=== PATIENT | male | born 1950 | race Caucasian/White ===

== ENCOUNTER → 2018-03-22 | Outpatient (CLI) | payer OTHER, MEDICARE ==
[~2018-03-22] MED LIST: AMLO2.5T PO; ASPI-496 PO; LISI1TAB3 PO; LISI5TAB7 PO; METF500T5 PO
== END | disposition home or self-care (01) ==
LOC: RAD 09:25
PROVIDERS: ATTEND Nurse Practitioner Family
DX: K80.20 Calculus of gallbladder without cholecystitis without obstruction (principal); K44.9 Diaphragmatic hernia without obstruction or gangrene; I25.10 Atherosclerotic heart disease of native coronary artery without angina pectoris
CPT/HCPCS: 74150

== ENCOUNTER → 2018-05-30 | Outpatient (CLI) | payer OTHER, MEDICARE ==
[~2018-05-30] MED LIST changes: -AMLO2.5T PO; +AMLO2.5T3 PO; +METF500T17 PO; -METF500T5 PO
== END | disposition home or self-care (01) ==
LOC: CFH 08:20
PROVIDERS: ATTEND Nurse Practitioner Family
DX: K80.20 Calculus of gallbladder without cholecystitis without obstruction (principal); K44.9 Diaphragmatic hernia without obstruction or gangrene; K59.00 Constipation, unspecified
CPT/HCPCS: 74150

== ENCOUNTER → 2018-06-15 | Outpatient (CLI) | payer OTHER, MEDICARE ==
[~2018-06-15] MED LIST changes: +REGADENOSON 0.4 MG/5 ML SYRINGE ONE
== END | disposition home or self-care (01) ==
LOC: CFH 07:20
PROVIDERS: ATTEND Internal Medicine Cardiovascular Disease
DX: I21.19 ST elevation (STEMI) myocardial infarction involving other coronary artery of inferior wall (principal); R93.1 Abnormal findings on diagnostic imaging of heart and coronary circulation; Z82.49 Family history of ischemic heart disease and other diseases of the circulatory system
CPT/HCPCS: 78452; 93017; 93306; A9502; J2785

== ENCOUNTER → 2018-08-08 | Outpatient (CLI) | payer OTHER, MEDICARE ==
[~2018-08-08] MED LIST changes: -REGADENOSON 0.4 MG/5 ML SYRINGE ONE
== END | disposition home or self-care (01) ==
LOC: RAD 08:39
PROVIDERS: ATTEND Surgery
DX: K82.4 Cholesterolosis of gallbladder (principal); K44.9 Diaphragmatic hernia without obstruction or gangrene; K21.9 Gastro-esophageal reflux disease without esophagitis
CPT/HCPCS: 74220; 93975

== ENCOUNTER → 2018-09-06 | Outpatient (CLI) | payer OTHER, MEDICARE ==
[~2018-09-06] MED LIST changes: -AMLO2.5T3 PO; +AMLO2.5T5 PO; +OMNIPAQUE 350 MG/ML, 100ML BOTTLE ONE
== END | disposition home or self-care (01) ==
LOC: CFH 13:46
PROVIDERS: ATTEND Surgery
DX: K59.00 Constipation, unspecified (principal); M47.817 Spondylosis without myelopathy or radiculopathy, lumbosacral region; K44.9 Diaphragmatic hernia without obstruction or gangrene; I70.0 Atherosclerosis of aorta; K76.0 Fatty (change of) liver, not elsewhere classified; K80.20 Calculus of gallbladder without cholecystitis without obstruction; K57.30 Diverticulosis of large intestine without perforation or abscess without bleeding; I51.7 Cardiomegaly; K55.9 Vascular disorder of intestine, unspecified
CPT/HCPCS: 74174; Q9967

== ENCOUNTER 2018-09-27 05:46 | Day surgery (SDC) | payer OTHER, MEDICARE ==
[~2018-09-27] VITALS: Ht 172.7 cm; Wt 95.3 kg
[~2018-09-27 05:46] MED LIST changes: +AMLO10TA8 PO; +GABA300C10 PO; +LISI1TAB5 PO; +OMEP20TA62 PO; -OMNIPAQUE 350 MG/ML, 100ML BOTTLE ONE; +SIMV40TA3 PO
[2018-09-27 07:08] VITALS: BP 145/70
[2018-09-27] MEDS ORDERED: LACTATED RINGERS 1,000 ML IV SCH (07:18)
[2018-09-27] MEDS ORDERED: BUPIVACAINE/PF-EPI 0.5% 1:200K ONE (07:39)
[2018-09-27] MEDS ORDERED: MIDAZOLAM 1 MG/ML, 2ML ONE (08:23)
[2018-09-27] MEDS ORDERED: FENTANYL PF 250 MCG/5ML ONE (08:23)
[2018-09-27] MEDS ORDERED: DEXAMETHASONE 4 MG/ML, 5ML ONE (08:49)
[2018-09-27] MEDS ORDERED: CEFAZOLIN 1,000 MG ONE ×3 (08:51→12:05)
[2018-09-27] MEDS ORDERED: HYDROmorphone 2 MG/ML, 1ML IVPush PRN (09:30)
[2018-09-27] MEDS ORDERED: LABETALOL 5MG/ML, 20ML IV PRN (09:30)
[2018-09-27] MEDS ORDERED: ONDANSETRON 2MG/ML, 2ML IV PRN (09:30)
[2018-09-27] MEDS ORDERED: hydrALAzine 20 MG/ML, 1ML IV PRN (09:30)
[2018-09-27] MEDS ORDERED: PROMETHAZINE 25 MG/ML, 1ML IV PRN (09:30)
[2018-09-27] MEDS ORDERED: OXYcodone 5 MG/5 ML ORAL.SOL UDC PO PRN (09:30)
[2018-09-27] MEDS ORDERED: ACETAMINOPHEN 325 MG TABLET PO PRN (09:30)
[2018-09-27] MEDS ORDERED: MEPERIDINE/PF 25MG/0.5ML IVPush PRN (09:30)
[2018-09-27] MEDS ORDERED: PROPOFOL 10 MG/ML, 20ML ONE (09:54)
[2018-09-27] MEDS ORDERED: ROCURONIUM 10MG/ML,5ML ONE ×2 (09:54)
[2018-09-27] MEDS ORDERED: ONDANSETRON 2MG/ML, 2ML ONE (10:52)
[2018-09-27] MEDS ORDERED: NEOSTIGMINE 1 MG/ML, 10ML ONE (10:55)
[2018-09-27] MEDS ORDERED: GLYCOPYRROLATE 0.4 MG/2 ML, 2ML ONE (10:55)
[2018-09-27] MEDS ORDERED: OXYcodone 5 MG/5 ML ORAL.SOL UDC ONE (11:35)
[2018-09-27] MEDS ORDERED: FENTANYL PF 100 MCG/2ML ONE (11:35)
[2018-09-27] MEDS: FENTANYL PF 100 MCG/2ML IV PRN ×2 (11:37→11:45)
[2018-09-27] MEDS ORDERED: IBUPROFEN 600 MG TABLET ONE (16:16)
[2018-09-27] MEDS ORDERED: IBUPROFEN 800 MG TABLET PO SCH (16:30)
[2018-09-27] MEDS ORDERED: IBUPROFEN 200 MG TABLET PO SCH (21:00)
== END 2018-09-27 16:40 | disposition home or self-care (01) ==
LOC: OUT 05:46
PROVIDERS: ATTEND Surgery
DX: K80.10 Calculus of gallbladder with chronic cholecystitis without obstruction (principal); K44.9 Diaphragmatic hernia without obstruction or gangrene; K21.9 Gastro-esophageal reflux disease without esophagitis; I25.10 Atherosclerotic heart disease of native coronary artery without angina pectoris; E11.9 Type 2 diabetes mellitus without complications; E78.5 Hyperlipidemia, unspecified; G47.33 Obstructive sleep apnea (adult) (pediatric); I10 Essential (primary) hypertension; Z98.52 Vasectomy status; Z98.890 Other specified postprocedural states; Z79.82 Long term (current) use of aspirin; Z79.899 Other long term (current) drug therapy; Z72.89 Other problems related to lifestyle; Z87.891 Personal history of nicotine dependence; Z79.84 Long term (current) use of oral hypoglycemic drugs
CPT/HCPCS: 43280; 47562; 82962; 88304; J0690; J1100; J2250; J2405; J2704; J2710; J3010; J7120

== ENCOUNTER → 2019-09-12 | Outpatient (CLI) | payer OTHER, MEDICARE ==
[~2019-09-12] MED LIST changes: +LISI1TAB19 PO; +LISI1TAB23 PO; -LISI1TAB3 PO; -LISI1TAB5 PO; +ROSU20TA2 PO
[2019-09-12 11:51] LABS: ALANINE AMINOTRANSFERASE 19 U/L (12-78); ALBUMIN 3.8 g/dL (3.4-5.0); ANION GAP 8 mmol/L (5-15); CALCIUM 9.2 mg/dL (8.5-10.1); CHLORIDE 107 mmol/L (98-107)
[2019-09-12 11:53] LABS: ALKALINE PHOSPHATASE 67 U/L (45-117); BILIRUBIN,TOTAL 0.4 mg/dL (0.2-1.0); CREATININE 0.92 mg/dL (0.7-1.3); TOTAL PROTEIN 7.5 g/dL (6.4-8.2)
[2019-09-12 11:56] LABS: INTERNATIONAL NORMALIZED RATIO 0.93 (0.93-1.1); PROTHROMBIN TIME 9.9 Seconds (9.6-11.5)
[2019-09-12 12:11] LABS: BASOPHILS # (AUTO) 0.05 x10^3/uL (0-0.1); BASOPHILS % (AUTO) 1 % (0-1); EOSINOPHILS # (AUTO) 0.72 x10^3/uL (0-0.4); EOSINOPHILS % (AUTO) 8 % (1-7); LYMPHOCYTES # (AUTO) 2.23 x10^3/uL (1-3.4); LYMPHOCYTES % (AUTO) 23 % (22-44); MD NO; MEAN CORPUSCULAR VOLUME 88.1 fL (81-97); MEAN PLATELET VOLUME 8.7 fL (7.4-10.4); MONOCYTES # (AUTO) 0.69 x10^3/uL (0.2-0.8); MONOCYTES % (AUTO) 7 % (2-9); NEUTROPHILS # (AUTO) 5.96 x10^3/uL (1.8-6.8); NEUTROPHILS % (AUTO) 62 % (42-75); PLATELET COUNT 283 x10^3/uL (130-400); RED CELL DISTRIBUTION WIDTH 14.4 % (9.4-14.8)
== END | disposition home or self-care (01) ==
LOC: STAR 10:13
PROVIDERS: ATTEND Orthopaedic Surgery
DX: Z01.818 Encounter for other preprocedural examination (principal); T84.84XA Pain due to internal orthopedic prosthetic devices, implants and grafts, initial encounter; Y83.8 Other surgical procedures as the cause of abnormal reaction of the patient, or of later complication, without mention of misadventure at the time of the procedure; Y92.89 Other specified places as the place of occurrence of the external cause; Z96.651 Presence of right artificial knee joint
CPT/HCPCS: 36415; 80053; 83036; 85025; 85610; 85730; 87081; 87147; 93005

== ENCOUNTER 2019-09-18 08:18 | Inpatient (IN) | payer OTHER, MEDICARE ==
[~2019-09-18] VITALS: Ht 172.7 cm; Wt 86.7 kg
[~2019-09-18 08:18] MED LIST changes: +KETOROLAC 60 MG/2 ML ONE; +ROPIvacaine/PF 0.5%, 20 ML ONE; +ROPIvacaine/PF 0.5%, 30 ML ONE; +SIMV40TA20 PO; -SIMV40TA3 PO; +TRANEXAMIC ACID 100 MG/ML, 10ML ONE; +VANCOMYCIN 1,000 MG ONE
[2019-09-18] MEDS ORDERED: LACTATED RINGERS 1,000 ML IV SCH (09:12)
[2019-09-18] MEDS ORDERED: GABAPENTIN 300 MG CAPSULE PO ONE (09:30)
[2019-09-18] MEDS ORDERED: VANCOMYCIN PER PHARMACY MC ONE (09:30)
[2019-09-18] MEDS ORDERED: ACETAMINOPHEN 500 MG TABLET PO ONE (09:30)
[2019-09-18] MEDS ORDERED: ONDANSETRON 2MG/ML, 2ML IV PRN ×2 (10:00→10:30)
[2019-09-18] MEDS ORDERED: DIPHENHYDRAMINE 25 MG CAPSULE PO PRN (10:00)
[2019-09-18] MEDS ORDERED: PHARMACOKINETIC CONSULTATION MC ONE (10:00)
[2019-09-18] MEDS ORDERED: SCOPOLAMINE PATCH, 1.5MG PATCH.TD72 TD ONE (10:00)
[2019-09-18] MEDS ORDERED: HYDROmorphone 1 MG/ML, 1ML INJ IV PRN (10:00)
[2019-09-18] MEDS ORDERED: ONDANSETRON 4 MG TABLET PO PRN (10:00)
[2019-09-18] MEDS ORDERED: OXYcodone IR 5MG TABLET PO PRN (10:00)
[2019-09-18] MEDS ORDERED: ZOLPIDEM 5MG TABLET PO PRN (10:00)
[2019-09-18] MEDS ORDERED: MAGNESIUM HYDROXIDE 8%, 30ML UDC PO PRN (10:00)
[2019-09-18] MEDS ORDERED: HYDROcodone/APAP 5/325 TABLET PO PRN (10:00)
[2019-09-18] MEDS ORDERED: VANCOMYCIN 1,700 MG in SODIUM CHLORIDE 0.9% 250 ML IV ONE (10:00)
[2019-09-18] MEDS ORDERED: SENNA/DOCUSATE TABLET PO PRN (10:00)
[2019-09-18] MEDS ORDERED: BISACODYL 10 MG SUPP PR PRN (10:00)
[2019-09-18] MEDS ORDERED: PROPOFOL 10 MG/ML, 20ML ONE (10:16)
[2019-09-18] MEDS ORDERED: NEOSTIGMINE 1 MG/ML, 10ML ONE (10:16)
[2019-09-18] MEDS ORDERED: CEFAZOLIN 1,000 MG ONE (10:16)
[2019-09-18] MEDS ORDERED: PHENYLEPHRINE 10 MG/ML ONE (10:16)
[2019-09-18] MEDS ORDERED: GLYCOPYRROLATE 0.2MG/1ML, 5ML ONE (10:16)
[2019-09-18] MEDS ORDERED: ROCURONIUM 10 MG/ML,10ML ONE (10:16)
[2019-09-18] MEDS ORDERED: MEPERIDINE/PF 25MG/ML,1ML IVPush PRN (10:30)
[2019-09-18] MEDS ORDERED: LABETALOL 5MG/ML, 20ML IV PRN (10:30)
[2019-09-18] MEDS ORDERED: MORPHINE SULFATE 4 MG/ML, 1ML IVPush PRN (10:30)
[2019-09-18] MEDS ORDERED: OXYcodone 5 MG/5 ML ORAL.SOL UDC PO PRN (10:30)
[2019-09-18] MEDS ORDERED: HYDROmorphone 1 MG/ML, 1ML INJ IVPush PRN (10:30)
[2019-09-18] MEDS ORDERED: hydrALAzine 20 MG/ML, 1ML IV PRN (10:30)
[2019-09-18] MEDS ORDERED: FENTANYL PF 100 MCG/2ML IV PRN (10:30)
[2019-09-18] MEDS: INSULIN LISPRO 100 UNITS/ML, PEN SQ-INSULIN SCH ×3 (11:00→21:00)
[2019-09-18] MEDS ORDERED: ONDANSETRON 2MG/ML, 2ML ONE (12:46)
[2019-09-18 13:35] VITALS: BP 90/48
[2019-09-18] MEDS: NS + 20MEQ KCL 1,000 ML IV SCH (14:59)
[2019-09-18] MEDS: GABAPENTIN 300 MG CAPSULE PO SCH ×2 (16:27→20:45)
[2019-09-18] MEDS ORDERED: ASPIRIN 81 MG TABLET EC PO SCH (18:00)
[2019-09-18] MEDS: CEFAZOLIN PMX 2GM/50ML 50 ML IVPB SCH (18:30)
[2019-09-18 19:55] VITALS: BP 90/49
[2019-09-18] MEDS: DOCUSATE 100 MG CAPSULE PO SCH (20:45)
[2019-09-18] MEDS: metFORMIN 500 MG TABLET PO SCH (20:45)
[2019-09-18] MEDS ORDERED: ATORVASTATIN 80 MG TABLET PO SCH (21:00)
[2019-09-18 23:39] VITALS: BP 100/59
[2019-09-19] MEDS: ACETAMINOPHEN 650 MG/20.3 ML UDC PO PRN ×2 (00:28→07:05)
[2019-09-19] MEDS: NS + 20MEQ KCL 1,000 ML IV SCH (01:30)
[2019-09-19] MEDS: CEFAZOLIN PMX 2GM/50ML 50 ML IVPB SCH (01:30)
[2019-09-19 03:55] VITALS: BP 104/50
[2019-09-19] MEDS ORDERED: DEXAMETHASONE 4 MG/ML, 1ML IVPush SCH (06:00)
[2019-09-19] MEDS ORDERED: RIVAROXABAN 10 MG TABLET PO SCH (06:00)
[2019-09-19] MEDS: INSULIN LISPRO 100 UNITS/ML, PEN SQ-INSULIN SCH ×2 (07:00→11:11)
[2019-09-19 07:47] VITALS: BP 123/68
[2019-09-19] MEDS: metFORMIN 500 MG TABLET PO SCH (08:34)
[2019-09-19] MEDS: DOCUSATE 100 MG CAPSULE PO SCH (08:34)
[2019-09-19] MEDS: GABAPENTIN 300 MG CAPSULE PO SCH (08:34)
[2019-09-19] MEDS ORDERED: OXYC5CAP2 PO (08:35)
[2019-09-19] MEDS ORDERED: RIVA10TA2 PO (08:36)
[2019-09-19] MEDS ORDERED: TRAM50TA2 PO (08:36)
[2019-09-19] MEDS ORDERED: MELO7.5T31 PO (08:37)
[2019-09-19] MEDS ORDERED: LISINOPRIL 20 MG TABLET PO SCH (09:00)
[2019-09-19] MEDS ORDERED: AMLODIPINE 10 MG TAB PO SCH (09:00)
[2019-09-19] MEDS ORDERED: HYDROCHLOROTHIAZIDE 12.5 MG CAPSULE PO SCH (09:00)
[2019-09-19 10:32] VITALS: BP 138/59
== END 2019-09-19 11:34 | disposition home or self-care (01) | DRG 468 ==
LOC: ORIP 08:18 → 4NE 13:27 → DCLOUNGE 09-19 11:24
PROVIDERS: ADMIT Orthopaedic Surgery; ATTEND Orthopaedic Surgery
PROC: 0SWT0JZ Revision of Synthetic Substitute in Right Knee Joint, Femoral Surface, Open Approach (ICD-10-PCS; principal; 2019-09-18 10:30)
DX: T84.84XA Pain due to internal orthopedic prosthetic devices, implants and grafts, initial encounter (principal); Y83.8 Other surgical procedures as the cause of abnormal reaction of the patient, or of later complication, without mention of misadventure at the time of the procedure; Z96.651 Presence of right artificial knee joint; E11.9 Type 2 diabetes mellitus without complications; I25.10 Atherosclerotic heart disease of native coronary artery without angina pectoris; I10 Essential (primary) hypertension; Y92.89 Other specified places as the place of occurrence of the external cause; Z82.49 Family history of ischemic heart disease and other diseases of the circulatory system; Z87.891 Personal history of nicotine dependence; I25.2 Old myocardial infarction
CPT/HCPCS: 36415; 82962; 85014; 85018; 86850; 86900; C1713; G0378; J0690; J1100; J1885; J2405; J2704; J2710; J2795; J3010; J3370; J3480; C1776; J2370; J7050; J7120

== ENCOUNTER 2019-09-22 08:43 | Emergency (ER) | payer OTHER, MEDICARE ==
[~2019-09-22] VITALS: Ht 172.7 cm; Wt 86.1 kg
[~2019-09-22 08:43] MED LIST changes: -KETOROLAC 60 MG/2 ML ONE; +MELO7.5T31 PO; +OXYC5CAP2 PO; +RIVA10TA2 PO; -ROPIvacaine/PF 0.5%, 20 ML ONE; -ROPIvacaine/PF 0.5%, 30 ML ONE; +TRAM50TA2 PO; -TRANEXAMIC ACID 100 MG/ML, 10ML ONE; -VANCOMYCIN 1,000 MG ONE
--- NOTE | 2019-09-22 09:16 | NUR ---
PT PRESENTS TO ED WITH C/O CONSTIPATION, LBM 6 DAYS AGO. PT NOTES HE HAD RIGHT KNEE REVISION 09/18/19 AND WAS GIVEN OXYCODONE FOR PAIN WHICH CAUSED CONSTIPATION. PT STATES HE HAS TAKEN LAXATIVES AT HOME WITH NO SUCCESS. ABDOMEN IS SOFT, BOWEL SOUNDS NOTED. NO TENDERNESS ON EXAM. PT HAS WOUND VAC IN PLACE TO RIGHT KNEE, DRESSING CDI, WOUND VAC ATTACHED AND FUNCTIONAL. NO ERYTHEMA, NO S/SX INFECTION TO SURGICAL SITE. PT A&O, RESPS EVEN AND UNLABORED. BP AND SPO2 MONITORS IN PLACE. CALL LIGHT IN REACH. AWAITING MD AND ORDERS.
--- NOTE | 2019-09-22 09:23 | NUR ---
DORITA PEACE AT BEDSIDE.
--- NOTE | 2019-09-22 09:28 | NUR ---
pt to xray
[2019-09-22] MEDS ORDERED: SODIUM CHLORIDE 0.9% 1,000ML IVBOLUS ONE (09:30)
[2019-09-22] MEDS ORDERED: SODIUM CHLORIDE FLUSH 10ML SYR IVF ONE (09:30)
[2019-09-22 10:08] LABS: ALBUMIN 3.2 g/dL (3.4-5.0); ANION GAP 9 mmol/L (5-15); CALCIUM 9.3 mg/dL (8.5-10.1); CHLORIDE 102 mmol/L (98-107)
[2019-09-22 10:11] LABS: ALANINE AMINOTRANSFERASE 16 U/L (12-78); ALKALINE PHOSPHATASE 67 U/L (45-117); BILIRUBIN,TOTAL 0.8 mg/dL (0.2-1.0); CREATININE 1.03 mg/dL (0.7-1.3); TOTAL PROTEIN 7.5 g/dL (6.4-8.2)
[2019-09-22 10:15] LABS: BASOPHILS # (AUTO) 0.06 x10^3/uL (0-0.1); BASOPHILS % (AUTO) 1 % (0-1); EOSINOPHILS # (AUTO) 0.15 x10^3/uL (0-0.4); EOSINOPHILS % (AUTO) 1 % (1-7); LYMPHOCYTES # (AUTO) 1.24 x10^3/uL (1-3.4); LYMPHOCYTES % (AUTO) 12 % (22-44); MD NO; MEAN CORPUSCULAR HEMOGLOBIN 29.2 pg (27.5-34.5); MEAN CORPUSCULAR HGB CONC 32.9 g/dL (33.2-36.2); MEAN CORPUSCULAR VOLUME 88.8 fL (81-97); MEAN PLATELET VOLUME 7.9 fL (7.4-10.4); MONOCYTES # (AUTO) 0.69 x10^3/uL (0.2-0.8); MONOCYTES % (AUTO) 7 % (2-9); NEUTROPHILS # (AUTO) 8.54 x10^3/uL (1.8-6.8); NEUTROPHILS % (AUTO) 80 % (42-75); PLATELET COUNT 272 x10^3/uL (130-400); RED BLOOD COUNT 4.02 x10^6/uL (4.38-5.82); RED CELL DISTRIBUTION WIDTH 14.1 % (9.4-14.8)
--- NOTE | 2019-09-22 11:21 | NUR ---
PT RESTING ON [place]ISETTE, A&O, RESPS EVEN AND UNLABORED. PT TO RECEIVE MEDS, REPORT GIVEN TO BREAK STEVE MORELAND.
[2019-09-22] MEDS ORDERED: DIAZEPAM 5 MG TABLET PO ONE (11:30)
[2019-09-22] MEDS ORDERED: METHYLNALTREXONE 12 MG/0.6 ML SYR SQ ONE ×2 (11:30→11:32)
[2019-09-22] MEDS ORDERED: DIAZEPAM 5 MG TABLET ONE (11:32)
--- NOTE | 2019-09-22 11:38 | NUR ---
task rn: pt medicated for pain and constipation per oct. will continue to monitor
--- NOTE | 2019-09-22 12:20 | NUR ---
PT INFORMED OF POC, PT REFUSES ENEMA AT THIS TIME, WISHING TO ATTEMPT TO HAVE A BM WITHOUT ENEMA ADMIN. PT UP TO BSC COMMODE WITH RN ASSIST. CALL LIGHT IN REACH.
--- NOTE | 2019-09-22 13:20 | NUR ---
pt unsuccessful in having a BM without enema, pt req [facility] enema. enema admin, pt tolerated well. pt up to commode at this time, awaiting enema effect.
--- NOTE | 2019-09-22 13:59 | NUR ---
pt had a large BM after enema. pt notes complete relief of pain and abd pressure. pt assisted back to bed, awaiting dc orders.
[2019-09-22 14:20] VITALS: BP 103/66
--- NOTE | 2019-09-22 14:20 | NUR ---
late entry d/t patient care: pt given dc instructions. pt a&o, resps even and unlabored, ambulatory to dc with steady gait, using own walker. pt reports he is feeling much better after enema. pt instructed not to drive d/t valium given. is to drive pt home. nadn at ut.
== END 2019-09-22 14:21 | disposition home or self-care (01) ==
LOC: ED 10:04
DX: K59.00 Constipation, unspecified (principal); R10.33 Periumbilical pain; I10 Essential (primary) hypertension; E11.9 Type 2 diabetes mellitus without complications; E78.5 Hyperlipidemia, unspecified
CPT/HCPCS: 36415; 74021; 80053; 83605; 85025; 96372; 99284; J7030

== ENCOUNTER → 2020-09-03 | Outpatient (CLI) | payer OTHER, MEDICARE ==
[~2020-09-03] MED LIST changes: +AMLO-211 PO; -AMLO10TA8 PO; -LISI1TAB19 PO; +LISI1TAB39 PO; +REGADENOSON 0.4 MG/5 ML SYRINGE ONE
== END | disposition home or self-care (01) ==
LOC: CFH 08:29
PROVIDERS: ATTEND Internal Medicine Cardiovascular Disease
DX: I21.19 ST elevation (STEMI) myocardial infarction involving other coronary artery of inferior wall (principal)
CPT/HCPCS: 78452; 93017; A9502; J2785

== ENCOUNTER 2020-10-06 07:13 | Observation (INO) | payer OTHER, MEDICARE ==
[~2020-10-06] VITALS: Ht 175.3 cm; Wt 90.3 kg
[~2020-10-06 07:13] MED LIST changes: -REGADENOSON 0.4 MG/5 ML SYRINGE ONE
[2020-10-06] MEDS ORDERED: Lyrica PO (07:52)
[2020-10-06] MEDS ORDERED: Patanol OP (07:52)
[2020-10-06 07:56] VITALS: BP 161/71
[2020-10-06 07:59] LABS: BASOPHILS % (AUTO) 1 % (0-1); EOSINOPHILS % (AUTO) 3 % (1-7); LYMPHOCYTES % (AUTO) 25 % (22-44); MD NO; MEAN CORPUSCULAR HEMOGLOBIN 29.4 pg (27.5-34.5); MEAN CORPUSCULAR HGB CONC 33.7 g/dL (33.2-36.2); MEAN PLATELET VOLUME 7.6 fL (7.4-10.4); MONOCYTES % (AUTO) 8 % (2-9); NEUTROPHILS % (AUTO) 63 % (42-75); PLATELET COUNT 223 x10^3/uL (130-400); RED CELL DISTRIBUTION WIDTH 14.4 % (9.4-14.8)
[2020-10-06 08:40] VITALS: BP 110/68
[2020-10-06] MEDS ORDERED: MIDAZOLAM 1 MG/ML, 5ML ONE ×2 (09:41→13:27)
[2020-10-06] MEDS ORDERED: LIDOCAINE 2%, 20ML ONE ×2 (09:41→13:34)
[2020-10-06] MEDS ORDERED: FENTANYL PF 100 MCG/2ML ONE ×2 (09:41→13:02)
[2020-10-06] MEDS ORDERED: MIDAZOLAM 1 MG/ML, 2ML ONE (13:02)
[2020-10-06] MEDS ORDERED: BIVALIRUDIN 250 MG ONE (13:02)
[2020-10-06] MEDS ORDERED: VERAPAMIL 2.5 MG/ML, 2ML ONE (13:02)
[2020-10-06] MEDS ORDERED: HEPARIN 1,000 UNITS/ML, 10ML ONE (13:02)
[2020-10-06] MEDS ORDERED: LIDOCAINE-MPF 1%, 5ML ONE (13:04)
[2020-10-06] MEDS ORDERED: PRASUGREL 10 MG TABLET ONE ×2 (14:23→14:26)
[2020-10-06] MEDS: SODIUM CHLORIDE 0.9% 1,000 ML IV SCH ×2 (14:30→22:30)
[2020-10-06] MEDS ORDERED: BIVALIRUDIN 250 MG in SODIUM CHLORIDE 0.9% 50 ML IV SCH (14:30)
[2020-10-06 19:22] VITALS: BP 153/73
[2020-10-06] MEDS ORDERED: ATORVASTATIN 20 MG TABLET PO SCH (21:00)
[2020-10-06] MEDS ORDERED: PREGABALIN 150 MG CAPSULE PO SCH (21:00)
[2020-10-07 04:50] VITALS: BP 146/72
[2020-10-07 04:52] LABS: ANION GAP 7 mmol/L (5-15); CALCIUM 8.5 mg/dL (8.5-10.1); CHLORIDE 108 mmol/L (98-107); CREATININE 0.85 mg/dL (0.7-1.3)
[2020-10-07 08:30] VITALS: BP 110/74
[2020-10-07] MEDS ORDERED: PRAS10TA4 PO (08:56)
[2020-10-07] MEDS ORDERED: AMLODIPINE 10 MG TAB PO SCH (09:00)
[2020-10-07] MEDS ORDERED: HYDROCHLOROTHIAZIDE 12.5 MG CAPSULE PO SCH (09:00)
[2020-10-07] MEDS ORDERED: PRASUGREL 10 MG TABLET PO SCH (09:00)
[2020-10-07] MEDS ORDERED: ASPIRIN 81 MG TABLET EC PO SCH (09:00)
[2020-10-07] MEDS ORDERED: LISINOPRIL 20 MG TABLET PO SCH (09:00)
[2020-10-07] MEDS ORDERED: PREGABALIN 150 MG CAPSULE PO SCH (09:00)
== END 2020-10-07 12:15 | disposition home or self-care (01) ==
LOC: CACL 07:13 → ORIP 14:24 → 5SO 17:35 → DCLOUNGE 10-07 12:09
PROVIDERS: ADMIT Internal Medicine Cardiovascular Disease; ATTEND Internal Medicine Cardiovascular Disease
DX: I25.110 Atherosclerotic heart disease of native coronary artery with unstable angina pectoris (principal); I25.82 Chronic total occlusion of coronary artery; E11.40 Type 2 diabetes mellitus with diabetic neuropathy, unspecified; E78.2 Mixed hyperlipidemia; G47.30 Sleep apnea, unspecified; R93.1 Abnormal findings on diagnostic imaging of heart and coronary circulation; I10 Essential (primary) hypertension; Z79.82 Long term (current) use of aspirin; Z79.899 Other long term (current) drug therapy; Z79.84 Long term (current) use of oral hypoglycemic drugs; Z82.49 Family history of ischemic heart disease and other diseases of the circulatory system
CPT/HCPCS: 36415; 80048; 85025; 93005; 93454; 93458; 93571; 99156; 99157; C1725; C1760; C1769; C1874; C1887; C1894; C9600; G0378; J0583; J1644; J2250; J3010; J3490; Q9967

== ENCOUNTER → 2021-01-13 | Outpatient (CLI) | payer OTHER, MEDICARE ==
[~2021-01-13] MED LIST changes: +Lyrica PO; +PRAS10TA4 PO; +Patanol OP; +REGADENOSON 0.4 MG/5 ML SYRINGE ONE
== END | disposition home or self-care (01) ==
LOC: CFH 08:43
PROVIDERS: ATTEND Internal Medicine Cardiovascular Disease
DX: I21.19 ST elevation (STEMI) myocardial infarction involving other coronary artery of inferior wall (principal); I25.9 Chronic ischemic heart disease, unspecified; R07.9 Chest pain, unspecified; R93.1 Abnormal findings on diagnostic imaging of heart and coronary circulation
CPT/HCPCS: 78452; 93017; A9502; J2785

== ENCOUNTER 2021-02-18 08:30 | Observation (INO) | payer OTHER, MEDICARE ==
[~2021-02-18] VITALS: Ht 174 cm; Wt 84.1 kg
[~2021-02-18 08:30] MED LIST changes: -REGADENOSON 0.4 MG/5 ML SYRINGE ONE
[2021-02-18] MEDS ORDERED: PREG150C PO (09:37)
[2021-02-18 09:45] VITALS: BP 131/60
[2021-02-18 10:11] LABS: ANION GAP 7 mmol/L (5-15); CALCIUM 9.3 mg/dL (8.5-10.1); CHLORIDE 108 mmol/L (98-107); CREATININE 0.85 mg/dL (0.7-1.3)
[2021-02-18 10:18] LABS: INTERNATIONAL NORMALIZED RATIO 0.94 (0.93-1.1); PROTHROMBIN TIME 10.1 Seconds (9.6-11.5)
[2021-02-18 10:22] LABS: BASOPHILS % (AUTO) 1 % (0-1); EOSINOPHILS % (AUTO) 14 % (1-7); LYMPHOCYTES % (AUTO) 24 % (22-44); MEAN CORPUSCULAR HEMOGLOBIN 29.3 pg (27.5-34.5); MEAN CORPUSCULAR HGB CONC 33.9 g/dL (33.2-36.2); MEAN PLATELET VOLUME 8.3 fL (7.4-10.4); MONOCYTES % (AUTO) 7 % (2-9); NEUTROPHILS % (AUTO) 54 % (42-75); PLATELET COUNT 200 x10^3/uL (130-400); RED BLOOD COUNT 4.27 x10^6/uL (4.38-5.82); RED CELL DISTRIBUTION WIDTH 14.4 % (9.4-14.8)
[2021-02-18] MEDS ORDERED: FENTANYL PF 100 MCG/2ML ONE (11:08)
[2021-02-18] MEDS ORDERED: LIDOCAINE 2%, 20ML ONE (11:08)
[2021-02-18] MEDS ORDERED: MIDAZOLAM 1 MG/ML, 5ML ONE (11:08)
[2021-02-18] MEDS ORDERED: BIVALIRUDIN 250 MG ONE (12:12)
[2021-02-18] MEDS ORDERED: SODIUM CHLORIDE 0.9% 1,000 ML IV SCH (13:00)
[2021-02-18 13:23] VITALS: BP 119/65
[2021-02-18 18:53] VITALS: BP 135/62
[2021-02-18] MEDS: PREGABALIN 150 MG CAPSULE PO SCH (20:50)
[2021-02-18] MEDS: OLOPATADINE OP SCH (20:50)
[2021-02-18] MEDS ORDERED: ATORVASTATIN 80 MG TABLET PO SCH (21:00)
[2021-02-19 01:33] VITALS: BP 132/66
[2021-02-19 06:00] LABS: ANION GAP 5 mmol/L (5-15); CALCIUM 8.9 mg/dL (8.5-10.1); CHLORIDE 111 mmol/L (98-107); CREATININE 0.84 mg/dL (0.7-1.3)
[2021-02-19] MEDS ORDERED: ASPIRIN 81 MG TABLET EC PO SCH ×2 (09:00)
[2021-02-19] MEDS ORDERED: HYDROCHLOROTHIAZIDE 12.5 MG CAPSULE PO SCH (09:00)
[2021-02-19] MEDS ORDERED: LISINOPRIL 20 MG TABLET PO SCH (09:00)
[2021-02-19] MEDS: OLOPATADINE OP SCH (09:00)
[2021-02-19] MEDS ORDERED: AMLODIPINE 10 MG TAB PO SCH (09:00)
[2021-02-19] MEDS ORDERED: PRASUGREL 10 MG TABLET PO SCH ×2 (09:00)
[2021-02-19] MEDS: PREGABALIN 150 MG CAPSULE PO SCH (09:34)
[2021-02-19 10:05] VITALS: BP 133/67
== END 2021-02-19 10:12 | disposition home or self-care (01) ==
LOC: CACL 08:30 → 5SO 12:57 → CACL 22:57 → 5SO 22:58 → DCLOUNGE 02-19 10:11
PROVIDERS: ADMIT Internal Medicine Cardiovascular Disease; ATTEND Internal Medicine Cardiovascular Disease
DX: T82.855A Stenosis of coronary artery stent, initial encounter (principal); I20.9 Angina pectoris, unspecified; I10 Essential (primary) hypertension; E78.5 Hyperlipidemia, unspecified; E11.40 Type 2 diabetes mellitus with diabetic neuropathy, unspecified; G47.30 Sleep apnea, unspecified; R93.1 Abnormal findings on diagnostic imaging of heart and coronary circulation; Y83.1 Surgical operation with implant of artificial internal device as the cause of abnormal reaction of the patient, or of later complication, without mention of misadventure at the time of the procedure; Z79.02 Long term (current) use of antithrombotics/antiplatelets; Z98.61 Coronary angioplasty status; Z79.82 Long term (current) use of aspirin; Z79.899 Other long term (current) drug therapy; Z82.49 Family history of ischemic heart disease and other diseases of the circulatory system
CPT/HCPCS: 36415; 80048; 85025; 85610; 93005; 93458; 99156; 99157; C1725; C1760; C1769; C1874; C1887; C1894; C9600; G0378; J0583; J2250; J3010; J3490; Q9967

== ENCOUNTER 2021-02-22 10:58 | Inpatient (IN) | payer OTHER, MEDICARE ==
[~2021-02-22] VITALS: Ht 172.7 cm; Wt 88.2 kg
[~2021-02-22 10:58] MED LIST changes: +PREG150C PO
[2021-02-22] MEDS ORDERED: SODIUM CHLORIDE FLUSH 10ML SYR IVF ONE (12:30)
[2021-02-22 12:42] LABS: BASOPHILS % (AUTO) 1 % (0-1); EOSINOPHILS % (AUTO) 5 % (1-7); LYMPHOCYTES % (AUTO) 27 % (22-44); MEAN CORPUSCULAR HEMOGLOBIN 29.5 pg (27.5-34.5); MEAN CORPUSCULAR HGB CONC 33.9 g/dL (33.2-36.2); MEAN PLATELET VOLUME 8.3 fL (7.4-10.4); MONOCYTES % (AUTO) 7 % (2-9); NEUTROPHILS % (AUTO) 60 % (42-75); PLATELET COUNT 223 x10^3/uL (130-400); RED BLOOD COUNT 4.46 x10^6/uL (4.38-5.82); RED CELL DISTRIBUTION WIDTH 14.3 % (9.4-14.8)
[2021-02-22 12:50] LABS: ALBUMIN 3.6 g/dL (3.4-5.0); ANION GAP 4 mmol/L (5-15); CALCIUM 9.2 mg/dL (8.5-10.1); CHLORIDE 109 mmol/L (98-107); CREATININE 0.86 mg/dL (0.7-1.3)
--- NOTE | 2021-02-22 13:46 | NUR ---
PT RESTING IN [facility]. UP FOR RECHECK AT THIS TIME
[2021-02-22] MEDS ORDERED: ASPIRIN 81 MG TABLET CHEW PO ONE (14:30)
[2021-02-22] MEDS ORDERED: ASPIRIN 81 MG TABLET CHEW ONE (14:38)
--- NOTE | 2021-02-22 14:40 | NUR ---
PT MEDICATED PER MAR
[2021-02-22] MEDS ORDERED: ACETAMINOPHEN 325 MG TABLET PO PRN (15:30)
[2021-02-22] MEDS ORDERED: ONDANSETRON ODT 4 MG PO PRN (15:30)
[2021-02-22] MEDS ORDERED: ONDANSETRON 2MG/ML, 2ML IVPush PRN (15:30)
[2021-02-22 15:41] VITALS: BP 153/72
[2021-02-22] MEDS: INSULIN LISPRO 100 UNITS/ML, PEN SQ-INSULIN SCH ×2 (16:00→21:12)
[2021-02-22] MEDS: ENOXAPARIN 40 MG/0.4 ML SQ SCH (16:09)
[2021-02-22] MEDS: metFORMIN 500 MG TABLET PO SCH (16:09)
[2021-02-22 19:11] VITALS: BP 143/58
[2021-02-22] MEDS: PREGABALIN 150 MG CAPSULE PO SCH (21:08)
[2021-02-22] MEDS: ATORVASTATIN 80 MG TABLET PO SCH (21:08)
[2021-02-23 04:43] VITALS: BP 123/63
[2021-02-23 06:33] LABS: BASOPHILS % (AUTO) 1 % (0-1); EOSINOPHILS % (AUTO) 6 % (1-7); LYMPHOCYTES % (AUTO) 29 % (22-44); MEAN CORPUSCULAR HEMOGLOBIN 29.1 pg (27.5-34.5); MEAN CORPUSCULAR HGB CONC 33.8 g/dL (33.2-36.2); MEAN PLATELET VOLUME 8.3 fL (7.4-10.4); MONOCYTES % (AUTO) 7 % (2-9); NEUTROPHILS % (AUTO) 58 % (42-75); PLATELET COUNT 224 x10^3/uL (130-400); RED BLOOD COUNT 4.48 x10^6/uL (4.38-5.82); RED CELL DISTRIBUTION WIDTH 14.6 % (9.4-14.8)
[2021-02-23 06:46] LABS: ANION GAP 5 mmol/L (5-15); CHLORIDE 108 mmol/L (98-107); CREATININE 0.81 mg/dL (0.7-1.3)
[2021-02-23 06:53] VITALS: BP 120/67
[2021-02-23] MEDS: INSULIN LISPRO 100 UNITS/ML, PEN SQ-INSULIN SCH ×4 (07:00→20:49)
[2021-02-23] MEDS: metFORMIN 500 MG TABLET PO SCH ×2 (08:01→17:03)
[2021-02-23] MEDS: LISINOPRIL 20 MG TABLET PO SCH (08:02)
[2021-02-23] MEDS: PREGABALIN 150 MG CAPSULE PO SCH ×2 (08:02→20:49)
[2021-02-23] MEDS: HYDROCHLOROTHIAZIDE 12.5 MG CAPSULE PO SCH (08:02)
[2021-02-23] MEDS: ASPIRIN 81 MG TABLET EC PO SCH (08:02)
[2021-02-23] MEDS: PRASUGREL 10 MG TABLET PO SCH (08:02)
[2021-02-23 13:10] VITALS: BP 111/61
[2021-02-23] MEDS: ENOXAPARIN 40 MG/0.4 ML SQ SCH (15:30)
[2021-02-23] MEDS ORDERED: ATOR-2 PO (16:15)
[2021-02-23 19:13] VITALS: BP 146/69
[2021-02-23] MEDS: ATORVASTATIN 80 MG TABLET PO SCH (20:49)
[2021-02-24 00:49] VITALS: BP 122/64
[2021-02-24 06:42] VITALS: BP 143/79
[2021-02-24] MEDS: INSULIN LISPRO 100 UNITS/ML, PEN SQ-INSULIN SCH (07:00)
[2021-02-24] MEDS: PRASUGREL 10 MG TABLET PO SCH (08:14)
[2021-02-24] MEDS: PREGABALIN 150 MG CAPSULE PO SCH (08:14)
[2021-02-24] MEDS: HYDROCHLOROTHIAZIDE 12.5 MG CAPSULE PO SCH (08:14)
[2021-02-24] MEDS: ASPIRIN 81 MG TABLET EC PO SCH (08:14)
[2021-02-24] MEDS: metFORMIN 500 MG TABLET PO SCH (08:15)
[2021-02-24] MEDS: LISINOPRIL 20 MG TABLET PO SCH (08:15)
== END 2021-02-24 10:26 | disposition home or self-care (01) | DRG 66 ==
LOC: ED 12:56 → 4WST 15:05
PROVIDERS: ADMIT Internal Medicine; ATTEND Internal Medicine
DX: I63.40 Cerebral infarction due to embolism of unspecified cerebral artery (principal); E78.5 Hyperlipidemia, unspecified; E11.9 Type 2 diabetes mellitus without complications; G47.30 Sleep apnea, unspecified; H53.2 Diplopia; I10 Essential (primary) hypertension; I25.10 Atherosclerotic heart disease of native coronary artery without angina pectoris; T50.2X5A Adverse effect of carbonic-anhydrase inhibitors, benzothiadiazides and other diuretics, initial encounter; Z95.5 Presence of coronary angioplasty implant and graft; Z96.651 Presence of right artificial knee joint
CPT/HCPCS: 36415; 70551; 80048; 82040; 82962; 85025; 93005; 93306; 93880; 99285; G0378; J1650; J1815